=== PATIENT | female | born 1975 | race Caucasian/White ===

== ENCOUNTER 2016-11-24 18:29 | Inpatient (IN) | payer OTHER ==
[2016-11-24 20:21] LABS: Basophils % (Auto) 1.2 % (0.0-1.8); Eosinophils % (Auto) 0.8 % (0.0-4.3); Mean Corpuscular HGB Conc 27 % (30-34); Platelet Count 226 K/mm3 (140-440); Red Blood Count 3.63 M/mm3 (3.65-5.03); White Blood Count 6.3 K/mm3 (4.5-11.0)
[2016-11-24 20:22] LABS: Hematocrit 20.1 % (30.3-42.9)
[2016-11-24 20:23] LABS: Hemoglobin 5.4 gm/dl (10.1-14.3); Mean Corpuscular Hemoglobin 15 pg (28-32); Mean Corpuscular Volume 55 fl (79-97); Red Cell Distribution Width 21.2 % (13.2-15.2)
[2016-11-24 20:42] LABS: Alanine Aminotransferase 38 units/L (7-56); Albumin 4.3 g/dL (3.9-5); Albumin/Globulin Ratio 1.3 %; Alkaline Phosphatase 104 units/L (35-129); Anion Gap 17 mmol/L; Blood Urea Nitrogen 8 mg/dL (7-17); Carbon Dioxide 23 mmol/L (22-30); Chloride 110.7 mmol/L (98-107); Glucose 108 mg/dL (65-100); Lipase 40 units/L (13-60); Potassium 4.4 mmol/L (3.6-5.0); Sodium 146 mmol/L (137-145); Total Protein 7.5 g/dL (6.3-8.2)
[2016-11-24 20:44] LABS: Alanine Aminotransferase 38 units/L (7-56); Albumin 4.3 g/dL (3.9-5); Albumin/Globulin Ratio 1.3 %; Alkaline Phosphatase 110 units/L (35-129); Total Protein 7.6 g/dL (6.3-8.2)
[2016-11-24 20:52] LABS: Bilirubin,Direct < 0.2 mg/dL (0-0.2); Bilirubin,Indirect 0.2 mg/dL
[2016-11-24] MEDS ORDERED: NACL 0.9% 500 ML 500 ML IV ONE (21:17)
[2016-11-24] MEDS ORDERED: REGLAN IV ONE (21:17)
[2016-11-24] MEDS ORDERED: BENADRYL IV ONE (21:17)
[2016-11-24 21:18] LABS: Bacteria,Urine 1+ /HPF (Negative); Bilirubin,Urine NEG (Negative); Blood,Urine NEG (Negative); Ketones,Urine NEG (Negative); Leukocyte Esterase,Urine NEG (Negative); Nitrite,Urine NEG (Negative); Protein,Urine <15 mg/dL mg/dL (Negative); Urobilinogen,Urine < 2.0 mg/dL (<2.0); WBC,Urine < 1.0 /HPF (0.0-6.0)
--- NOTE | 2016-11-24 21:18 | Emergency Department Report ---
ED General Adult HPI - General Chief complaint: Headache Stated complaint: HEADACHE,RIGHT FLANK PAIN Time Seen by Provider: 11/24/16 21:05 Source: patient, family, EMS (ems notes not available at time of chart dictation), RN notes reviewed Mode of arrival: Stretcher Limitations: Language Barrier (this provider is conversant in [place]) - History of Present Illness Initial comments: This is a 41-year-old female, the patient is previously unknown to me. She reports a past medical history of hypertension, anemia. She does not have a local primary care doctor. The patient presents with multiple complaints. The patient's first complaint is headache. The headache has been present for 3 days. It is waning and intermittent. It does not reach maximal intensity within an hour. It is not sudden or thunderclap in nature. The headache is right-sided, retro-orbital, and occipital. There is no neck pain, there is no neck stiffness. Patient endorses numbness in the left upper extremity, and nonspecific visual disturbance in her left eye. The patient's last complaint is right flank abdominal pain. This has been present for 8 years. It is intermittent. It does not radiate anywhere. It has no exacerbating or relieving factors. The patient denies hematemesis of bright red blood per rectum. She is not having vaginal bleeding at this time. She also admits to generalized malaise and weakness. -: Gradual Location: head, abdomen Severity scale (0 -10): 7 Consistency: intermittent Improves with: none Worsens with: none Associated Symptoms: headaches, malaise, weakness - Related Data Allergies Allergy/AdvReac Type Severity Reaction Status Date / Time No Known Allergies Allergy Verified 11/24/16 20:04 ED Review of Systems ROS: Stated complaint: HEADACHE,RIGHT FLANK PAIN Other details as noted in HPI Constitutional: malaise, weakness Eyes: vision change ENT: denies: epistaxis Respiratory: denies: cough Cardiovascular: denies: chest pain Gastrointestinal: abdominal pain Genitourinary: denies: dysuria Musculoskeletal: denies: back pain Neurological: headache, weakness Psychiatric: anxiety ED Physical Exam - General Limitations: Language Barrier General appearance: alert, in no apparent distress - Head Head exam: Present: atraumatic, normocephalic - Eye Eye exam: Present: normal appearance, PERRL, EOMI, other (visual acuity intact to finger counting, color perception, reading at a close distance). Absent: nystagmus - ENT ENT exam: Present: normal orophraynx, mucous membranes moist, normal external ear exam - Neck Neck exam: Present: normal inspection, full ROM. Absent: tenderness, meningismus - Respiratory Respiratory exam: Present: normal lung sounds bilaterally. Absent: respiratory distress, wheezes, rales, rhonchi, stridor, chest wall tenderness, accessory muscle use, decreased breath sounds, prolonged expiratory - Cardiovascular Cardiovascular Exam: Present: regular rate, normal rhythm, normal heart sounds. Absent: bradycardia, systolic murmur, diastolic murmur, rubs, gallop - GI/Abdominal GI/Abdominal exam: Present: soft, normal bowel sounds. Absent: distended, tenderness, guarding, rebound, rigid, pulsatile mass - Extremities Exam Extremities exam: Present: normal inspection, full ROM, normal capillary refill. Absent: pedal edema, joint swelling, calf tenderness - Back Exam Back exam: Present: normal inspection - Neurological Exam Neurological exam: Present: alert, oriented X3, motor sensory deficit (there is decreased sensation to light touch in the left upper extremity.), other (there is no facial droop. The tongue is midline. Extraocular movements are intact bilaterally. Facial sensation is intact to light touch in the bilateral V1, V2 , V3 distribution.) - Psychiatric Psychiatric exam: Present: normal affect, normal mood - Skin Skin exam: Present: warm, dry, intact, normal color. Absent: rash ED Course Vital Signs 11/24/16 11/24/16 11/24/16 18:43 19:55 20:48 Temperature 99 F 99 F Pulse Rate 100 H 92 H Respiratory 16 18 Rate Blood Pressure 160/80 Blood Pressure 153/90 [Right] O2 Sat by Pulse 97 100 100 Oximetry 11/24/16 11/24/16 11/24/16 20:51 21:00 21:11 Temperature 98.9 F Pulse Rate 92 H Respiratory 16 Rate Blood Pressure 156/80 145/79 145/79 Blood Pressure 156/80 [Right] O2 Sat by Pulse 100 100 100 Oximetry 11/24/16 11/24/16 11/24/16 21:21 21:31 21:44 Temperature Pulse Rate Respiratory Rate Blood Pressure 145/79 145/79 150/64 Blood Pressure [Right] O2 Sat by Pulse 99 100 100 Oximetry 11/24/16 11/24/16 11/25/16 21:51 23:55 00:00 Temperature 98.8 F Pulse Rate 85 Respiratory 16 Rate Blood Pressure 145/79 140/82 135/81 Blood Pressure [Right] O2 Sat by Pulse 100 100 100 Oximetry 11/25/16 11/25/16 11/25/16 00:11 00:15 00:21 Temperature 98.8 F Pulse Rate 87 Respiratory 16 Rate Blood Pressure 150/64 125/73 125/73 Blood Pressure [Right] O2 Sat by Pulse 100 100 99 Oximetry - Reevaluation(s) Reevaluation #1: 11/24/16 22:[address] scan demonstrates no acute disease, focal parenchymal calcifications noted in the left frontal lobe, possible history of old neurocysticercosis. Patient reports that she was born in [place], but has lived in the [facility] for the past 20 years. She does not have a fever or white count, therefore, I do not believe she requires emergent consultation with infectious disease's evening, they can be routinely consult in the morning. Case is presented to the Hospital physician, Dr. Wilkins, who accepts the patient to his service. 11/24/16 22:40 ED Medical Decision Making - Lab Data Result diagrams: 11/24/16 20:10 11/24/16 20:10 Vital Signs 11/24/16 11/24/16 11/24/16 18:43 19:55 21:00 Temperature 99 F 99 F 98.9 F Pulse Rate 100 H 92 H 92 H Respiratory 16 18 16 Rate Blood Pressure 160/80 Blood Pressure 153/90 156/80 [Right] O2 Sat by Pulse 97 100 100 Oximetry Lab Results 11/24/16 11/24/16 11/24/16 Range/Units 20:10 20:10 20:10 WBC 6.3 (4.5-11.0) K/mm3 RBC 3.63 L (3.65-5.03) M/mm3 Hgb 5.4 L* (10.1-14.3) gm/dl Hct 20.1 L (30.3-42.9) % MCV 55 L (79-97) fl MCH 15 L (28-32) pg MCHC 27 L (30-34) % RDW 21.2 H (13.2-15.2) % Plt Count 226 (140-440) K/mm3 Lymph % (Auto) 24.3 (13.4-35.0) % [place] % (Auto) 10.7 H (0.0-7.3) % Eos % (Auto) 0.8 (0.0-4.3) % Baso % (Auto) 1.2 (0.0-1.8) % Lymph # 1.5 (1.2-5.4) K/mm3 [place] # 0.7 (0.0-0.8) K/mm3 Eos # 0.0 (0.0-0.4) K/mm3 Baso # 0.1 (0.0-0.1) K/mm3 Seg Neutrophils % 63.0 (40.0-70.0) % Seg Neutrophils # 4.0 (1.8-7.7) K/mm3 Sodium 146 H (137-145) mmol/L Potassium 4.4 (3.6-5.0) mmol/L Chloride 110.7 H (98-107) mmol/L Carbon Dioxide 23 (22-30) mmol/L Anion Gap 17 mmol/L BUN 8 (7-17) mg/dL Creatinine 0.4 L (0.7-1.2) mg/dL Estimated GFR > 60 ml/min BUN/Creatinine Ratio 20.00 % Glucose 108 H (65-100) mg/dL Calcium 9.0 (8.4-10.2) mg/dL Total Bilirubin 0.40 0.40 (0.1-1.2) mg/dL Direct Bilirubin < 0.2 (0-0.2) mg/dL Indirect Bilirubin 0.2 mg/dL AST 38 37 (5-40) units/L ALT 38 38 (7-56) units/L Alkaline Phosphatase 104 110 (35-129) units/L Total Protein 7.5 7.6 (6.3-8.2) g/dL Albumin 4.3 4.3 (3.9-5) g/dL Albumin/Globulin Ratio 1.3 1.3 % Amylase (27-131) units/L Lipase 40 (13-60) units/L HCG, Qual (Negative) Urine Color (Yellow) Urine Turbidity (Clear) Urine pH (5.0-7.0) Ur Specific [place] (1.003-1.030) Urine Protein (Negative) mg/dL Urine Glucose (UA) (Negative) mg/dL Urine Ketones (Negative) mg/dL Urine Blood (Negative) Urine Nitrite (Negative) Urine Bilirubin (Negative) Urine Urobilinogen (<2.0) mg/dL Ur Leukocyte Esterase (Negative) Urine WBC (Auto) (0.0-6.0) /HPF Urine RBC (Auto) (0.0-6.0) /HPF U Epithel Cells (Auto) (0-13.0) /HPF Urine Bacteria (Auto) (Negative) /HPF Blood Type Crossmatch 11/24/16 11/24/16 11/24/16 Range/Units 20:10 20:10 20:45 WBC (4.5-11.0) K/mm3 RBC (3.65-5.03) M/mm3 Hgb (10.1-14.3) gm/dl Hct (30.3-42.9) % MCV (79-97) fl MCH (28-32) pg MCHC (30-34) % RDW (13.2-15.2) % Plt Count (140-440) K/mm3 Lymph % (Auto) (13.4-35.0) % [place] % (Auto) (0.0-7.3) % Eos % (Auto) (0.0-4.3) % Baso % (Auto) (0.0-1.8) % Lymph # (1.2-5.4) K/mm3 [place] # (0.0-0.8) K/mm3 Eos # (0.0-0.4) K/mm3 Baso # (0.0-0.1) K/mm3 Seg Neutrophils % (40.0-70.0) % Seg Neutrophils # (1.8-7.7) K/mm3 Sodium (137-145) mmol/L Potassium (3.6-5.0) mmol/L Chloride (98-107) mmol/L Carbon Dioxide (22-30) mmol/L Anion Gap mmol/L BUN (7-17) mg/dL Creatinine (0.7-1.2) mg/dL Estimated GFR ml/min BUN/Creatinine Ratio % Glucose (65-100) mg/dL Calcium (8.4-10.2) mg/dL Total Bilirubin (0.1-1.2) mg/dL Direct Bilirubin (0-0.2) mg/dL Indirect Bilirubin mg/dL AST (5-40) units/L ALT (7-56) units/L Alkaline Phosphatase (35-129) units/L Total Protein (6.3-8.2) g/dL Albumin (3.9-5) g/dL Albumin/Globulin Ratio % Amylase 133 H (27-131) units/L Lipase (13-60) units/L HCG, Qual Negative (Negative) Urine Color Colorless (Yellow) Urine Turbidity Clear (Clear) Urine pH 8.0 H (5.0-7.0) Ur Specific [place] 1.003 (1.003-1.030) Urine Protein <15 mg/dl (Negative) mg/dL Urine Glucose (UA) Neg (Negative) mg/dL Urine Ketones Neg (Negative) mg/dL Urine Blood Neg (Negative) Urine Nitrite Neg (Negative) Urine Bilirubin Neg (Negative) Urine Urobilinogen < 2.0 (<2.0) mg/dL Ur Leukocyte Esterase Neg (Negative) Urine WBC (Auto) < 1.0 (0.0-6.0) /HPF Urine RBC (Auto) 1.0 (0.0-6.0) /HPF U Epithel Cells (Auto) 1.0 (0-13.0) /HPF Urine Bacteria (Auto) 1+ (Negative) /HPF Blood Type Crossmatch 11/24/16 Range/Units 21:50 WBC (4.5-11.0) K/mm3 RBC (3.65-5.03) M/mm3 Hgb (10.1-14.3) gm/dl Hct (30.3-42.9) % MCV (79-97) fl MCH (28-32) pg MCHC (30-34) % RDW (13.2-15.2) % Plt Count (140-440) K/mm3 Lymph % (Auto) (13.4-35.0) % [place] % (Auto) (0.0-7.3) % Eos % (Auto) (0.0-4.3) % Baso % (Auto) (0.0-1.8) % Lymph # (1.2-5.4) K/mm3 [place] # (0.0-0.8) K/mm3 Eos # (0.0-0.4) K/mm3 Baso # (0.0-0.1) K/mm3 Seg Neutrophils % (40.0-70.0) % Seg Neutrophils # (1.8-7.7) K/mm3 Sodium (137-145) mmol/L Potassium (3.6-5.0) mmol/L Chloride (98-107) mmol/L Carbon Dioxide (22-30) mmol/L Anion Gap mmol/L BUN (7-17) mg/dL Creatinine (0.7-1.2) mg/dL Estimated GFR ml/min BUN/Creatinine Ratio % Glucose (65-100) mg/dL Calcium (8.4-10.2) mg/dL Total Bilirubin (0.1-1.2) mg/dL Direct Bilirubin (0-0.2) mg/dL Indirect Bilirubin mg/dL AST (5-40) units/L ALT (7-56) units/L Alkaline Phosphatase (35-129) units/L Total Protein (6.3-8.2) g/dL Albumin (3.9-5) g/dL Albumin/Globulin Ratio % Amylase (27-131) units/L Lipase (13-60) units/L HCG, Qual (Negative) Urine Color (Yellow) Urine Turbidity (Clear) Urine pH (5.0-7.0) Ur Specific [place] (1.003-1.030) Urine Protein (Negative) mg/dL Urine Glucose (UA) (Negative) mg/dL Urine Ketones (Negative) mg/dL Urine Blood (Negative) Urine Nitrite (Negative) Urine Bilirubin (Negative) Urine Urobilinogen (<2.0) mg/dL Ur Leukocyte Esterase (Negative) Urine WBC (Auto) (0.0-6.0) /HPF Urine RBC (Auto) (0.0-6.0) /HPF U Epithel Cells (Auto) (0-13.0) /HPF Urine Bacteria (Auto) (Negative) /HPF Blood Type O POSITIVE Crossmatch See Detail - EKG Data -: EKG Interpreted by Md EKG shows normal: sinus rhythm - EKG Data When compared to previous EKG there are: previous EKG unavailable 11/24/16 22:06 Normal sinus, 86 beats per minute, normal axis, normal intervals, not morphologically consistent with STEMI - Radiology Data Radiology results: pending, report reviewed, image reviewed - Medical Decision Making Differential diagnosis: Migraine headache, cluster headache, tension headache, multiple sclerosis,, subacute stroke, symptomatic anemia Assessment and plan: 41-year-old female with complaint of headache, and abdominal pain, found to be anemic, with a hemoglobin of 5/20, reports no active vaginal bleeding or rectal bleeding. Headache symptoms and neurologic symptoms have been present for 3 days, therefore the patient is not a TPA candidate. Patient has an NIH score of 1 for subjective sensory derangement. Headache is intermittently present for 3 days, not sudden or thunderclap in nature, history and not consistent with hemorrhagic or subarachnoid hemorrhage. Patient's abdominal pain has been present for 18 years by her history, laboratory studies are unremarkable, her abdomen is soft and nontender, with no rebound, guarding or peritoneal signs, therefore I do not feel that the patient requires emergent imaging of her abdomen/pelvis. She will be treated symptomatically for her headache, a noncontrast CT scan of the brain was obtained to exclude hemorrhagic stroke and structural abnormalities, plan to admit for further evaluation and management. Critical care attestation.: If time is entered above; I have spent that time in minutes in the direct care of this critically ill patient, excluding procedure time. ED Disposition Clinical Impression: Symptomatic anemia, Visual disturbance, Headache Disposition: [id number] OP ADMIT IP TO THIS HOSP Is pt being admited?: Yes Does the pt Need Aspirin: Yes Condition: Good
--- NOTE | 2016-11-24 22:22 | Cat Scan Report ---
FINAL REPORT PROCEDURE: CT HEAD/BRAIN WO CON TECHNIQUE: Computerized tomography of the head was performed without contrast material. HISTORY: Headache COMPARISON: No prior studies are available for comparison. FINDINGS: There are focal parenchymal calcifications in the left frontal lobe, which may be related to prior infectious process. There is no CT evidence of intracranial mass, hemorrhage, acute territorial infarction, or hydrocephalus. The intracranial arteries are symmetric in density. Calvarium is intact. No acute fracture is seen. The visualized paranasal sinuses and mastoids are aerated. IMPRESSION: Focal parenchymal calcifications can be seen with prior infectious process, such as neurocysticercosis. No CT evidence of acute intracranial abnormality
[2016-11-24] MEDS ORDERED: BABY ASPIRIN PO ONE (22:41)
[2016-11-25] MEDS ORDERED: ZOFRAN IV PRN (04:03)
[2016-11-25] MEDS ORDERED: TYLENOL PO PRN (04:03)
--- NOTE | 2016-11-25 04:50 | History and Physical Report ---
CHIEF COMPLAINT: Headache. Other complaints include numbness, left eye visual disturbances, and weakness. HISTORY OF PRESENT ILLNESS: The patient is a 41-year-old female who was having headache going on for about 3 days. Headache is moderate in intensity and is located on the right side of the head and also retroorbital and occipital area. There is history of numbness in the left upper extremity and some nonspecific visual disturbances involving the left eye with some haziness in the vision. The patient also complained of weakness, but there is no history of chest pain. No history of shortness of breath. The patient also denied any history of rectal bleeding or vomiting of blood or excessive vaginal bleeding and presented for evaluation where she was found to have low hemoglobin and low hematocrit and presented for admission. PAST MEDICAL HISTORY: Pertinent for anemia and also the patient has past medical history of hypertension. PAST SURGICAL HISTORY: Noncontributory. FAMILY HISTORY: Noncontributory. SOCIAL HISTORY: The patient lives with family. Does not smoke. Does not drink alcohol. Does not use illicit drugs. MEDICATIONS: The patient is not on any known home medication. ALLERGIES: There are no known drug allergies. REVIEW OF SYSTEMS: CONSTITUTIONAL: There is no fever. No chills or diaphoresis. HEENT: There is history of headache with no sore throat and there is history of visual disturbances involving the left eye. CARDIOVASCULAR: There is no chest pain. No orthopnea. RESPIRATORY SYSTEM: There is no shortness of breath or cough. GASTROINTESTINAL SYSTEM: There is no nausea. No vomiting. No abdominal pain, diarrhea, or constipation. NEUROLOGICAL SYSTEM: Numbness on the left upper extremity noted. Headache and visual disturbances noted. No altered mental status. No dizziness. There is generalized weakness. MUSCULOSKELETAL SYSTEM: There is no joint pain or swelling. DERMATOLOGICAL SYSTEM: There is no skin rash or itching. GENITOURINARY SYSTEM: There is no dysuria, hematuria, or flank pain. Rest of system review is normal. PHYSICAL EXAMINATION: GENERAL: At the time of exam, the patient was found to be alert and oriented x3 and not in acute distress. VITAL SIGNS: Shows temperature of 98.8 degrees Fahrenheit, pulse of 92, respirations 16, blood pressure 156/80, and O2 sat of 100% on room air. HEENT EXAM: Showed pupils to be equal, round, and reactive to light and accommodating. Extraocular muscles are intact. NECK: Supple with no JVD or carotid bruits. CARDIOVASCULAR SYSTEM: Showed normal first and second heart sounds with no gallops or murmur. RESPIRATORY SYSTEM: Show good air entry on both sides of the lung with no abnormal breath sounds. GASTROINTESTINAL SYSTEM: Show abdomen to be full, soft, and nontender with no organomegaly or rigidity. NEUROLOGIC EXAM: Shows no focal deficit. MUSCULOSKELETAL SYSTEM: Show no joint swelling or tenderness. DERMATOLOGICAL SYSTEM: Show no skin rash. GENITOURINARY SYSTEM: Showing no costovertebral angle tenderness. PERTINENT LABORATORY AND IMAGING STUDIES: The patient had CT of the head done without contrast that shows no acute intracranial abnormality. The patient's labs CBC shows normal white count with low hemoglobin of 5.4, low hematocrit of 20.1, and low MCV of 55 with low MCHC of 27 and high RDW of 21.2. CBC differential showed high monocyte count of 10.7% with normal segmented neutrophils. The patient's chemistry shows elevated sodium level of 146 and high chloride level of 110 with normal BUN and unremarkable renal function test. The patient's minus level was slightly elevated with a value of 133, but lipase level came back normal. test was negative. Urinalysis show high urine pH of 8.0; otherwise, rest of the urinalysis was unremarkable. DIAGNOSES: 1. Anemia. 2. Headache. 3. Numbness of the left upper extremity. 4. Visual disturbances. PLAN: The patient will be admitted to medical floor on telemetry and will continue blood transfusion that was ordered by the Emergency Room for patient to get packed red blood cell transfusions. The patient will have posttransfusion CBC checked and will have bilateral carotid Doppler done this morning as well as MRI of the brain without contrast done this morning. The patient will be on aspirin 325 mg by mouth daily and will be on IV Zofran 4 mg every 6 hours as needed for nausea and vomiting and Tylenol 650 mg by mouth every 4 hours for fever and headache. The patient will have Neurology consult with Dr. Caban. JOB# [id number] OCN/NTS
--- NOTE | 2016-11-25 07:49 | History and Physical Report ---
History of Present Illness Date of admission: 11/24/16 23:24 Medications and Allergies Allergies Allergy/AdvReac Type Severity Reaction Status Date / Time No Known Allergies Allergy Verified 11/24/16 20:04 Active Meds: Active Medications Acetaminophen (Tylenol) 650 mg PO Q4H PRN PRN Reason: For Pain/Fever/Headache Aspirin (Aspirin) 325 mg PO QDAY ZULEIKA Ondansetron HCl (Zofran) 4 mg IV Q8H PRN PRN Reason: Nausea And Vomiting Exam - Constitutional Vitals: Temp Pulse Resp BP Pulse Ox 98.8 F 86 16 127/66 97 11/25/16 06:31 11/25/16 06:31 11/25/16 06:31 11/25/16 06:31 11/25/16 04:55 Results - Labs CBC & Chem 7: 11/24/16 20:10 11/24/16 20:10 Labs: Laboratory Last Values WBC 6.3 K/mm3 (4.5-11.0) 11/24/16 20:10 RBC 3.63 M/mm3 (3.65-5.03) L 11/24/16 20:10 Hgb 5.4 gm/dl (10.1-14.3) L* 11/24/16 20:10 Hct 20.1 % (30.3-42.9) L 11/24/16 20:10 MCV 55 fl (79-97) L 11/24/16 20:10 MCH 15 pg (28-32) L 11/24/16 20:10 MCHC 27 % (30-34) L 11/24/16 20:10 RDW 21.2 % (13.2-15.2) H 11/24/16 20:10 Plt Count 226 K/mm3 (140-440) 11/24/16 20:10 Lymph % (Auto) 24.3 % (13.4-35.0) 11/24/16 20:10 [facility] % (Auto) 10.7 % (0.0-7.3) H 11/24/16 20:10 Eos % (Auto) 0.8 % (0.0-4.3) 11/24/16 20:10 Baso % (Auto) 1.2 % (0.0-1.8) 11/24/16 20:10 Lymph # 1.5 K/mm3 (1.2-5.4) 11/24/16 20:10 [facility] # 0.7 K/mm3 (0.0-0.8) 11/24/16 20:10 Eos # 0.0 K/mm3 (0.0-0.4) 11/24/16 20:10 Baso # 0.1 K/mm3 (0.0-0.1) 11/24/16 20:10 Seg Neutrophils % 63.0 % (40.0-70.0) 11/24/16 20:10 Seg Neutrophils # 4.0 K/mm3 (1.8-7.7) 11/24/16 20:10 Sodium 146 mmol/L (137-145) H 11/24/16 20:10 Potassium 4.4 mmol/L (3.6-5.0) 11/24/16 20:10 Chloride 110.7 mmol/L (98-107) H 11/24/16 20:10 Carbon Dioxide 23 mmol/L (22-30) 11/24/16 20:10 Anion Gap 17 mmol/L 11/24/16 20:10 BUN 8 mg/dL (7-17) 11/24/16 20:10 Creatinine 0.4 mg/dL (0.7-1.2) L 11/24/16 20:10 Estimated GFR > 60 ml/min 11/24/16 20:10 BUN/Creatinine Ratio 20.00 % 11/24/16 20:10 Glucose 108 mg/dL (65-100) H 11/24/16 20:10 Calcium 9.0 mg/dL (8.4-10.2) 11/24/16 20:10 Total Bilirubin 0.40 mg/dL (0.1-1.2) 11/24/16 20:10 Direct Bilirubin < 0.2 mg/dL (0-0.2) 11/24/16 20:10 Indirect Bilirubin 0.2 mg/dL 11/24/16 20:10 AST 37 units/L (5-40) 11/24/16 20:10 ALT 38 units/L (7-56) 11/24/16 20:10 Alkaline Phosphatase 110 units/L (35-129) 11/24/16 20:10 Total Protein 7.6 g/dL (6.3-8.2) 11/24/16 20:10 Albumin 4.3 g/dL (3.9-5) 11/24/16 20:10 Albumin/Globulin Ratio 1.3 % 11/24/16 20:10 Amylase 133 units/L (27-131) H 11/24/16 20:10 Lipase 40 units/L (13-60) 11/24/16 20:10 HCG, Qual Negative (Negative) 11/24/16 20:10 Urine Color Colorless (Yellow) 11/24/16 20:45 Urine Turbidity Clear (Clear) 11/24/16 20:45 Urine pH 8.0 (5.0-7.0) H 11/24/16 20:45 Ur Specific [place] 1.003 (1.003-1.030) 11/24/16 20:45 Urine Protein <15 mg/dl mg/dL (Negative) 11/24/16 20:45 Urine Glucose (UA) Neg mg/dL (Negative) 11/24/16 20:45 Urine Ketones Neg mg/dL (Negative) 11/24/16 20:45 Urine Blood Neg (Negative) 11/24/16 20:45 Urine Nitrite Neg (Negative) 11/24/16 20:45 Urine Bilirubin Neg (Negative) 11/24/16 20:45 Urine Urobilinogen < 2.0 mg/dL (<2.0) 11/24/16 20:45 Ur Leukocyte Esterase Neg (Negative) 11/24/16 20:45 Urine WBC (Auto) < 1.0 /HPF (0.0-6.0) 11/24/16 20:45 Urine RBC (Auto) 1.0 /HPF (0.0-6.0) 11/24/16 20:45 U Epithel Cells (Auto) 1.0 /HPF (0-13.0) 11/24/16 20:45 Urine Bacteria (Auto) 1+ /HPF (Negative) 11/24/16 20:45 Blood Type O POSITIVE 11/24/16 21:50 Antibody Screen Negative 11/24/16 21:50 Crossmatch See Detail 11/24/16 21:50
--- NOTE | 2016-11-25 07:56 | Progress Note ---
Assessment and Plan Assessment and plan: Patient is a 41 years old female with past medical history of hypertension, and anemia who presents to the Emergency department for headache, numbness of the left upper extremity and visual disturbance X 2 days. Patient noted yesterday onset of wavy lines in her left visual merrill, then numbness in her left hand that did well well as he is a well as migrate up her left arm to her face. No sx in her left leg. No weakness of any extremity. The throbbing and pulsating headache on the right side of her head assoc with nausea , no vomiting. She gets approx 3 right sided headaches per 6 mos that last an hour or so. She keeps on working at that time. ASSESSMENT/PLAN Symptomatic anemia Patient found have very low hemoglobin/hematocrit Patient transfused 1 unit PRBC in the emergency department. Stool occult blood ordered Post-transfusion H&H stable Started on ferrous sulfate close monitor H&H Dysesthesias in the left hand/visual disturbance Most likely due to migraine and Anemia visual disturbance and dysesthesias in the left hand, resolved. CT of the head reviewed, shows tow christiano calcifications in the left frontal lobe, which are asymptomatic and have nothing to do with her current sx. The may be sequellae of past infection with ?histo, ?toxoplasmosis. Not a current issue Per neurology. MRI of the brain pending Negative VL bilateral carotid duplex Started on Aspirin Neurology consulted Migraine Antecedent Hx of migraine. Migraine Variant, with visual scintillations left visual field and dysesthesias in the left hand, resolved. Tiny calcifications left frontal lobe on head CT ?seconary to remote infection as above. Not an issue at this time per Neurology. pain controlled with Tylenol Supportive care. Hypertension Started on lisinopril Closely monitor Blood pressure Elevated Amylase Closely monitor LFT's DVT prophylaxis Lovenox History Interval history: Patient denies headache, lightheadedness, shortness of breath or dizziness. She reported posterior neck discomfort. labs and nurse noted reviewed. Hospitalist Physical - Constitutional Vitals: Temp Pulse Resp BP Pulse Ox 98.8 F 86 16 127/66 97 11/25/16 06:31 11/25/16 06:31 11/25/16 06:31 11/25/16 06:31 11/25/16 04:55 General appearance: Present: no acute distress - EENT Eyes: Present: PERRL ENT: hearing intact - Neck Neck: Present: supple - Respiratory Respiratory effort: normal Respiratory: bilateral: CTA - Cardiovascular Heart rate: 86 Rhythm: regular Heart Sounds: Present: S1 & S2 - Extremities Extremities: no ischemia Peripheral Pulses: within normal limits - Abdominal General gastrointestinal: soft, non-tender - Integumentary Integumentary: Present: clear, warm, dry - Psychiatric Psychiatric: appropriate mood/affect - Neurologic Neurologic: CNII-XII intact - Allied Health Allied health notes reviewed: nursing Results - Labs CBC & Chem 7: 11/25/16 08:45 11/24/16 20:10 Labs: Laboratory Last Values WBC 6.3 K/mm3 (4.5-11.0) 11/24/16 20:10 RBC 3.63 M/mm3 (3.65-5.03) L 11/24/16 20:10 Hgb 5.4 gm/dl (10.1-14.3) L* 11/24/16 20:10 Hct 20.1 % (30.3-42.9) L 11/24/16 20:10 MCV 55 fl (79-97) L 11/24/16 20:10 MCH 15 pg (28-32) L 11/24/16 20:10 MCHC 27 % (30-34) L 11/24/16 20:10 RDW 21.2 % (13.2-15.2) H 11/24/16 20:10 Plt Count 226 K/mm3 (140-440) 11/24/16 20:10 Lymph % (Auto) 24.3 % (13.4-35.0) 11/24/16 20:10 Crisp % (Auto) 10.7 % (0.0-7.3) H 11/24/16 20:10 Eos % (Auto) 0.8 % (0.0-4.3) 11/24/16 20:10 Baso % (Auto) 1.2 % (0.0-1.8) 11/24/16 20:10 Lymph # 1.5 K/mm3 (1.2-5.4) 11/24/16 20:10 Crisp # 0.7 K/mm3 (0.0-0.8) 11/24/16 20:10 Eos # 0.0 K/mm3 (0.0-0.4) 11/24/16 20:10 Baso # 0.1 K/mm3 (0.0-0.1) 11/24/16 20:10 Seg Neutrophils % 63.0 % (40.0-70.0) 11/24/16 20:10 Seg Neutrophils # 4.0 K/mm3 (1.8-7.7) 11/24/16 20:10 Sodium 146 mmol/L (137-145) H 11/24/16 20:10 Potassium 4.4 mmol/L (3.6-5.0) 11/24/16 20:10 Chloride 110.7 mmol/L (98-107) H 11/24/16 20:10 Carbon Dioxide 23 mmol/L (22-30) 11/24/16 20:10 Anion Gap 17 mmol/L 11/24/16 20:10 BUN 8 mg/dL (7-17) 11/24/16 20:10 Creatinine 0.4 mg/dL (0.7-1.2) L 11/24/16 20:10 Estimated GFR > 60 ml/min 11/24/16 20:10 BUN/Creatinine Ratio 20.00 % 11/24/16 20:10 Glucose 108 mg/dL (65-100) H 11/24/16 20:10 Calcium 9.0 mg/dL (8.4-10.2) 11/24/16 20:10 Total Bilirubin 0.40 mg/dL (0.1-1.2) 11/24/16 20:10 Direct Bilirubin < 0.2 mg/dL (0-0.2) 11/24/16 20:10 Indirect Bilirubin 0.2 mg/dL 11/24/16 20:10 AST 37 units/L (5-40) 11/24/16 20:10 ALT 38 units/L (7-56) 11/24/16 20:10 Alkaline Phosphatase 110 units/L (35-129) 11/24/16 20:10 Total Protein 7.6 g/dL (6.3-8.2) 11/24/16 20:10 Albumin 4.3 g/dL (3.9-5) 11/24/16 20:10 Albumin/Globulin Ratio 1.3 % 11/24/16 20:10 Amylase 133 units/L (27-131) H 09/20/17 20:10 Lipase 40 units/L (13-60) 11/24/16 20:10 HCG, Qual Negative (Negative) 11/24/16 20:10 Urine Color Colorless (Yellow) 11/24/16 20:45 Urine Turbidity Clear (Clear) 11/24/16 20:45 Urine pH 8.0 (5.0-7.0) H 11/24/16 20:45 Ur Specific [place] 1.003 (1.003-1.030) 11/24/16 20:45 Urine Protein <15 mg/dl mg/dL (Negative) 11/24/16 20:45 Urine Glucose (UA) Neg mg/dL (Negative) 11/24/16 20:45 Urine Ketones Neg mg/dL (Negative) 11/24/16 20:45 Urine Blood Neg (Negative) 11/24/16 20:45 Urine Nitrite Neg (Negative) 11/24/16 20:45 Urine Bilirubin Neg (Negative) 11/24/16 20:45 Urine Urobilinogen < 2.0 mg/dL (<2.0) 11/24/16 20:45 Ur Leukocyte Esterase Neg (Negative) 11/24/16 20:45 Urine WBC (Auto) < 1.0 /HPF (0.0-6.0) 11/24/16 20:45 Urine RBC (Auto) 1.0 /HPF (0.0-6.0) 11/24/16 20:45 U Epithel Cells (Auto) 1.0 /HPF (0-13.0) 11/24/16 20:45 Urine Bacteria (Auto) 1+ /HPF (Negative) 11/24/16 20:45 Blood Type O POSITIVE 11/24/16 21:50 Antibody Screen Negative 11/24/16 21:50 Crossmatch See Detail 11/24/16 21:50
--- NOTE | 2016-11-25 08:37 | History and Physical Report ---
History of Present Illness Date of examination: 11/25/16 Date of admission: 11/24/16 23:24 Chief complaint: NEUROLOGY CONSULTATION NOTE Hx reivewed in chart + with patient and . This examiner speaks Liberian. Yesterday noted onset of wavy lines in her left visual merrill, then numbness in her left hand that did not migrate up her left arm to her face. No sx in her left leg. No weakness of any extremity. The throbbing and pulsating headache on the right side of her head assoc with nausea, no vomiting. She gets approx 3 right sided headaches per 6 mos that last an hour or so. She keeps on working at that time. Has never had to take to bed. No fam hx of headaches. All sx have resolved at this time. She works in house cleaning at a hotel, long hours , bending her head down much of the time, experienceing some neck pain at times at the end of the day. She was born in [place] of [facility], moved here 20 y[address] ago[address] Her head CT, reviewed, shows tow christiano calcifications in the left frontal lobe, which are asymptomatic and have nothing to do with her current sx. The may be sequellae of past infection with ?histo, ?toxoplasmosis. Not a current issue. ROS: as above. an 11 point ROS is neg. SH/FH: as above, not re-reviewed MEDS/ALLERGIES: see chart. EXAM: MS: nl, clear fluent speech without errors. Follows commands well. oriented x 3. CN: 2 - 12 nl MOT: full strength all 4 extremities prox and dist SENS: intact to light touch throughout extrem and face CEREB: fnf nl bilat DTRS: 2+ and symmetric prox and dist all 4 extrem GATE: nl IMP: 1. Migraine Variant, with visual scintillations left visual field and dysesthesias in the left hand, resolved. 2. Antecedent Hx of migraine. 3. Tiny calcifications left frontal lobe on head CT ?seconary to remote infection as above. Not an issue at this time. RECC: 1. Reassured patient and 2. Migraine triggers incl stress discussed 3. have ordered MRI. At times a small infarct may be seen in the contalateral (right) thalamus or parietal lobe assoc with this and on a migrainous basis. 4. See no needs for fancy migraine meds as her sx are mild, no need for prophylactic meds. 5. If MRI nl, see no need to keep patient here. Call as needed. Pardeep Caban MD Medications and Allergies Allergies Allergy/AdvReac Type Severity Reaction Status Date / Time No Known Allergies Allergy Verified 11/24/16 20:04 Active Meds: Active Medications Acetaminophen (Tylenol) 650 mg PO Q4H PRN PRN Reason: For Pain/Fever/Headache Aspirin (Aspirin) 325 mg PO QDAY ZULEIKA Ondansetron HCl (Zofran) 4 mg IV Q8H PRN PRN Reason: Nausea And Vomiting Physical Examination - Vital Signs Vital Signs: Vital Signs Temp Pulse Resp BP Pulse Ox 99 F 100 H 16 160/80 97 11/24/16 18:43 11/24/16 18:43 11/24/16 18:43 11/24/16 18:43 11/24/16 18:43 Results - Laboratory Findings CBC and BMP: 11/24/16 20:10 11/24/16 20:10
[2016-11-25 08:58] LABS: Hematocrit 26.2 % (30.3-42.9); Hemoglobin 7.8 gm/dl (10.1-14.3); Mean Corpuscular HGB Conc 30 % (30-34); Platelet Count 200 K/mm3 (140-440); Red Blood Count 4.21 M/mm3 (3.65-5.03); White Blood Count 4.3 K/mm3 (4.5-11.0)
[2016-11-25 09:18] LABS: Iron 17 ug/dL (37-170); Total Iron Binding Capacity 419 mcg/dL (250-450)
[2016-11-25 09:27] LABS: Mean Corpuscular Hemoglobin 19 pg (28-32); Mean Corpuscular Volume 62 fl (79-97); Red Cell Distribution Width 32.7 % (13.2-15.2)
[2016-11-25] MEDS ORDERED: ASPIRIN PO SCH (10:00)
[2016-11-25 10:23] LABS: Basophils % (Manual) 0 % (0.0-1.8); Blastocytes % (Manual) 0 %
[2016-11-25 10:24] LABS: Anisocytosis 2+; Hypochromasia 2+; Microcytosis 2+; Poikilocytosis 1+
[2016-11-25 10:25] LABS: Diff Status Complete
--- NOTE | 2016-11-25 10:50 | Magnetic Resonance Report ---
MRI OF THE BRAIN WITHOUT CONTRAST: HISTORY: Left arm numbness, headaches, visual disturbance PROCEDURE: Multiplanar, multisequence MR imaging of the brain without IV contrast was performed. FINDINGS: The brain parenchyma signal intensity and its culver white interface are within normal limits on all sequences. No evidence for acute ischemia, hemorrhage or mass. No chronic infarct or extra-axial fluid collection. The midline structures are central. The basal cisterns are patent. Normal ventricular size. The orbital cavities and sella turcica demonstrate no abnormality. The visualized paranasal sinuses and mastoid air cells are well aerated. IMPRESSION: Unremarkable non-enhanced MRI of the brain.
[2016-11-25] MEDS ORDERED: FEOSOL PO SCH (14:00)
--- NOTE | 2016-11-25 14:43 | Discharge Summary ---
Providers - Providers Date of Admission: 11/24/16 23:24 Date of discharge: 11/25/16 Attending physician: MEHDI RICHMOND 11/25/16 06:33 Consult to Physician [CONS] Routine Consulting Provider: GORDO CABAN Reason For Exam: VISUAL DISTURBANCES,NUMBNESS LEFT ARM AND HEADACHE Place consult to:: Dr. Caban Notified:: Emilie PARRISHpatient centered care specialist physician: MAIL RIDER Hospitalization Condition: Good Hospital course: Patient is a 41 years old female with past medical history of hypertension, and anemia who presents to the Emergency department for headache, numbness of the left upper extremity and visual disturbance X 2 days. Patient noted yesterday onset of wavy lines in her left visual merrill, then numbness in her left hand that did well well as he is a well as migrate up her left arm to her face. No sx in her left leg. No weakness of any extremity. The throbbing and pulsating headache on the right side of her head assoc with nausea , no vomiting. She gets approx 3 right sided headaches per 6 mos that last an hour or so. She keeps on working at that time. CT of the head reviewed, shows tow christiano calcifications in the left frontal lobe, which are asymptomatic and have nothing to do with her current symptoms. Patient found have very low hemoglobin/hematocrit. Patient transfused 1 unit PRBC in the emergency department. Migraine Variant, with visual scintillations left visual field and dysesthesias in the left hand, resolved. She was treated with PRBC, iron, antihypertensive and IV fluid. . She is being discharged on oral antihypertensive, Iron and stool softener. Patient Post-transfusion hemoglobin/ hematocrit stable. Patient clinically improved Patient was advised to follow up with her primary care and [facility] to follow up Stool occult blood culture . Discharge Diagnosed Symptomatic anemia Dysesthesias in the left hand/visual disturbance Migraine Hypertension Elevated Amylase Time spent for discharge: 33 minutes Core Measure Documentation - Palliative Care Palliative Care/ Comfort Measures: Not Applicable - Core Measures Any of the following diagnoses?: none Exam - Constitutional Vitals: Temp Pulse Resp BP Pulse Ox 98.8 F 57 L 18 129/79 100 11/25/16 07:30 11/25/16 07:30 11/25/16 07:30 11/25/16 07:30 11/25/16 07:30 General appearance: Present: no acute distress - EENT Eyes: Present: PERRL ENT: hearing intact - Neck Neck: Present: supple - Respiratory Respiratory effort: normal Respiratory: bilateral: CTA - Cardiovascular Rhythm: regular Heart Sounds: Present: S1 & S2 - Extremities Extremities: no ischemia Peripheral Pulses: within normal limits - Abdominal General gastrointestinal: Present: soft, non-tender Female genitourinary: Present: deferred - Rectal Rectal Exam: deferred - Integumentary Integumentary: Present: clear, warm, dry - Musculoskeletal Musculoskeletal: strength equal bilaterally - Psychiatric Psychiatric: appropriate mood/affect - Neurologic Neurologic: CNII-XII intact - Allied Health Allied health notes reviewed: nursing Plan Weight Bearing Status: Weight Bear as Tolerated Diet: low fat, low cholesterol, low salt Follow up with: PRIMARY CARE, [Primary Care Provider] - 3-5 Days Prescriptions: amLODIPine [Norvasc] 5 mg PO DAILY 30 Days Docusate Sodium [Colace CAP] 100 mg PO BID 30 Days Ferrous Sulfate [Feosol 325 MG tab] 325 mg PO TID 30 Days
[2016-11-25 19:05] VITALS: BP 149/88
[2016-11-25] MEDS ORDERED: COLACE PO SCH (22:00)
[2016-11-26] MEDS ORDERED: ZESTRIL PO SCH (10:00)
== END 2016-11-25 19:19 | disposition home or self-care (01) | DRG 812 ==
LOC: ED 18:29 → 4A 23:24
PROVIDERS: ADMIT Internal Medicine; ATTEND Internal Medicine
PROC: 30233N1 Transfusion of Nonautologous Red Blood Cells into Peripheral Vein, Percutaneous Approach (ICD-10-PCS; principal; 2016-11-25)
DX: D64.9 Anemia, unspecified (principal); H53.9 Unspecified visual disturbance; G43.909 Migraine, unspecified, not intractable, without status migrainosus; I10 Essential (primary) hypertension; R20.8 Other disturbances of skin sensation
CPT/HCPCS: 36415; 70450; 70551; 80053; 80074; 81001; 82150; 83550; 83690; 84703; 85007; 85018; 85025; 86850; 86900; 86901; 86920; 93005; 93010; 93880; 96374; 96375; J1200; J2765; J7040; P9016

== ENCOUNTER 2020-08-29 20:57 | Emergency (ER) | payer SELFPAY ==
[2020-08-30 00:06] LABS: Basophils % (Auto) 0.6 % (0.0-1.8); Eosinophils # (Auto) 0.2 K/mm3 (0.0-0.4); Eosinophils % (Auto) 2.4 % (0.0-4.3); Hematocrit 29.4 % (30.3-42.9); Hemoglobin 9.7 gm/dl (10.1-14.3); Lymphocytes # (Auto) 1.9 K/mm3 (1.2-5.4); Lymphocytes % (Auto) 24.3 % (13.4-35.0); Mean Corpuscular HGB Conc 33 % (30-34); Mean Corpuscular Volume 83 fl (79-97); Monocytes # (Auto) 0.7 K/mm3 (0.0-0.8); Platelet Count 210 K/mm3 (140-440); Red Blood Count 3.57 M/mm3 (3.65-5.03); Red Cell Distribution Width 17.9 % (13.2-15.2)
[2020-08-30] MEDS ORDERED: SODIUM CHLORIDE 0.9% 1000 ML 1,000 ML IV ONE (00:16)
--- NOTE | 2020-08-30 00:20 | Emergency Department Report ---
ED Dizziness HPI - General Chief Complaint: Vaginal Bleeding Stated Complaint: LOSSING BLOOD Time Seen by Provider: 08/30/20 00:10 Source: patient Mode of arrival: Ambulatory Limitations: No Limitations - History of Present Illness Initial Comments: Patient is a 45-year-old female who presents emergency room with complaints of dizziness, heavy vaginal bleeding, dyspnea on exertion. Patient states her dizziness and shortness of breath started today. Patient states it is not short of breath is better with rest. Patient does not sound shortness of breath are worse with exertion and movement. Patient states she had vaginal bleeding since August 4019. Patient states that she is under care of a medical record transcriber for this problem but states she has a long history of anemia. Patient dates 3 years ago she required a transfusion. Patient states she has lower abdominal pain. Patient states having pain at this time. Patient states he has history of fi broids. Patient states she recently received a Depo-Provera shot to try to control her heavy vaginal bleeding. Patient states she is taking ferrous sulfate 325 mg twice daily. Patient denies recent travel. Patient denies recent international travel. Patient denies exposure to the novel coronavirus. Patient denies sick contacts. Patient denies fever and chills. Patient denies cough. Patient denies diarrhea. Patient denies coming in contact with anybody with symptoms of the novel coronavirus. Complaint: dizziness, lightheadedness -: Gradual Timing: gradual onset Description: lightheadedness, near-syncope History of Same: Yes History of Trauma: No Severity: severe Improves With: rest Worsens With: movement, position, exertion Associated Symptoms: malaise, shortness of breath. denies: ataxia, chest pain, confusion, cough, diaphoresis, fever/chills, loss of appetite, rash, seizure, syncope, weakness - Related Data Previous Rx's Medication Instructions Recorded Last Taken Type Docusate Sodium [Colace CAP] 100 mg PO BID 30 Days capsule 11/25/16 Unknown Rx amLODIPine [Norvasc] 5 mg PO DAILY 30 Days tab 11/25/16 Unknown Rx Iron Fum,Ps/Folic/Bcomp,C No.9 1 each PO BID 30 Days #60 capsule 08/30/20 Unknown Rx [Integra Plus Capsule] Allergies Allergy/AdvReac Type Severity Reaction Status Date / Time No Known Allergies Allergy Verified 11/24/16 20:04 ED Review of Systems ROS: Stated complaint: LOSSING BLOOD Other details as noted in HPI Constitutional: malaise. denies: chills, fever Eyes: denies: eye pain, eye discharge, vision change ENT: denies: ear pain, throat pain Respiratory: shortness of breath. denies: cough, wheezing Cardiovascular: denies: chest pain, palpitations Endocrine: no symptoms reported Gastrointestinal: denies: abdominal pain, nausea, diarrhea Genitourinary: as per HPI. denies: urgency, dysuria, discharge Musculoskeletal: denies: back pain, joint swelling, arthralgia Skin: denies: rash, lesions Neurological: as per HPI. denies: headache, weakness, paresthesias Psychiatric: denies: anxiety, depression Hematological/Lymphatic: denies: easy bleeding, easy bruising ED Past Medical Hx - Past Medical History Previous Medical History?: Yes Hx Hypertension: Yes Hx Congestive Heart Failure: No Hx Diabetes: No Hx Asthma: No Hx COPD: No Additional medical history: Anemia - Surgical History Past Surgical History?: No - Family History Family history: no significant - Social History Smoking Status: Never Smoker Substance Use Type: None - Medications Home Medications: Home Medications Medication Instructions Recorded Confirmed Last Taken Type Docusate Sodium [Colace CAP] 100 mg PO BID 30 Days capsule 11/25/16 Unknown Rx amLODIPine [Norvasc] 5 mg PO DAILY 30 Days tab 11/25/16 Unknown Rx Iron Fum,Ps/Folic/Bcomp,C No.9 1 each PO BID 30 Days #60 capsule 08/30/20 Unknown Rx [Integra Plus Capsule] ED Physical Exam - General Limitations: No Limitations General appearance: alert, in no apparent distress - Head Head exam: Present: atraumatic, normocephalic - Eye Eye exam: Present: normal appearance, PERRL Pupils: Present: normal accommodation - ENT ENT exam: Present: mucous membranes dry - Neck Neck exam: Present: normal inspection - Respiratory Respiratory exam: Present: normal lung sounds bilaterally. Absent: respiratory distress, wheezes, rales - Cardiovascular Cardiovascular Exam: Present: regular rate, normal rhythm. Absent: systolic m urmur, diastolic murmur, rubs, gallop - GI/Abdominal GI/Abdominal exam: Present: soft, normal bowel sounds. Absent: distended, tenderness, guarding - Extremities Exam Extremities exam: Present: normal inspection - Back Exam Back exam: Present: normal inspection - Neurological Exam Neurological exam: Present: alert, oriented X3 - Psychiatric Psychiatric exam: Present: normal affect, normal mood - Skin Skin exam: Present: warm, dry, intact, normal color. Absent: rash ED Course Vital Signs 08/29/20 22:54 Temperature 98.3 F Pulse Rate 87 Respiratory 12 Rate Blood Pressure 175/98 O2 Sat by Pulse 100 Oximetry - Reevaluation(s) Reevaluation #1: Patient states she feels better. Patient denies dizziness with ambulation. I discussed all results and clinical findings with patient. I discussed plan of care with patient. Patient agrees with plan of care. Patient is stable for discharge. Patient will be discharged home. Patient given discharge instruc tions. Patient voiced understanding of discharge instructions. 08/30/20 01:36 ED Medical Decision Making - Lab Data Result diagrams: 08/29/20 23:20 08/30/20 00:48 - Medical Decision Making Patient is a 45-year-old female that presents emergency room with complaints of heavy vaginal bleeding, dizziness and shortness of breath. Patient shortness of breath resolved with rest. Patient dizziness resolved with rest. Patient given a liter of fluid and all her symptoms resolved. Patient discharged from the ER essentially asymptomatic. Patient had labs done which were essentially unremarkable except for anemia. Patient has a long history of anemia. Patient is currently taking changed the ferrous sulfate to Integra plus. Patient stable for discharge. Patient need to follow-up with her ENERGY ATTORNEY. Patient does not require inpatient services. Patient does not require further emergency medical services. Patient stable for discharge. Patient was discharged home. - Differential Diagnosis Patient is, vaginal bleeding, anemia, dehydration, shortness of breath Critical care attestation.: If time is entered above; I have spent that time in minutes in the direct care of this critically ill patient, excluding procedure time. ED Disposition Clinical Impression: Dizziness, Abnormal vaginal bleeding Anemia Qualifiers: Anemia type: unspecified type Qualified Code(s): D64.9 - Anemia, unspecified Heavy menstrual period Qualifiers: Menorrhagia type: with regular cycle Qualified Code(s): N92.0 - Excessive and frequent menstruation with regular cycle Disposition: - TO HOME OR SELFCARE Is pt being admited?: No Does the pt Need Aspirin: No Condition: Stable Instructions: Abnormal Uterine Bleeding, Metrorrhagia, Syau-py-Lera, Ferritin Test, Dizziness, [id number] Additional Instructions: Patient to follow-up with primary care in 2 to 3 days. Patient to follow-up with INFORMATION TECHNOLOGY AUDIT MANAGER in 2 to 3 days. Patient to rest. Patient to increase water. Patient to avoid strenuous exercise or heavy lifting until cleared by INFORMATION TECHNOLOGY AUDIT MANAGER. Patient to take Tylenol or ibuprofen as needed for pain. Patient to take meds as directed. Patient to return to the ER if condition worsens, changes or new symptoms arise. Prescriptions: Iron Fum,Ps/Folic/Bcomp,C No.9 [Integra Plus Capsule] 1 each PO BID 30 Days #60 capsule Referrals: JASWANT RAYMUNDO MD [Primary Care Provider] - 3-5 Days Time of Disposition: 01:40 Print Language: ITALIAN
[2020-08-30 01:35] LABS: Alanine Aminotransferase 48 units/L (7-56); Albumin 4.2 g/dL (3.9-5); BUN/Creatinine Ratio 23; Blood Urea Nitrogen 9 mg/dL (7-17); Calcium 8.9 mg/dL (8.4-10.2); Hemolysis Index 1
[2020-08-30] MEDS ORDERED: HYDROmorphone 1 MG/1 ML INJ IV PRN (02:34)
[2020-08-30 04:12] VITALS: BP 138/84
== END 2020-08-30 02:55 | disposition home or self-care (01) ==
LOC: ED 20:57
DX: N92.0 Excessive and frequent menstruation with regular cycle (principal); N93.9 Abnormal uterine and vaginal bleeding, unspecified; D64.9 Anemia, unspecified; R42 Dizziness and giddiness; I10 Essential (primary) hypertension; Z79.899 Other long term (current) drug therapy
CPT/HCPCS: 36415; 80053; 84703; 85025; 86900; 86901; 96361; 96374; 99283; J1170; J7030